=== PATIENT | female | born 1980 | race Caucasian/White ===

== ENCOUNTER → 2025-08-08 08:28 | Outpatient (REF) | payer BC, SELFPAY | LOC: RAD 08:28 | PROVIDERS: ATTENDING PHYSICIAN Family Medicine | DX: S99.921A Unspecified injury of right foot, initial encounter (principal) | CPT/HCPCS: 73630 ==

== ENCOUNTER → 2025-10-23 07:49 | Outpatient (REF) | payer BC, SELFPAY | LOC: RAD 07:49 | PROVIDERS: ATTENDING PHYSICIAN Nurse Practitioner Family; FAMILY PHYSICIAN Family Medicine | DX: M94.0 Chondrocostal junction syndrome [Tietze] (principal); R07.89 Other chest pain | CPT/HCPCS: 71046 ==